=== PATIENT | male | born 1935 | race Caucasian/White ===

== ENCOUNTER 2021-04-20 16:27 | Emergency (ER) | payer MEDICARE, SELFPAY ==
[2021-04-20 16:32] VITALS: BP 149/78; PULSE 82; RESP 16; TEMP 36.9; O2SAT 96
--- NOTE | 2021-04-20 16:45 | CTR_ITS ---
PROCEDURE INFORMATION: Exam: CT Right Lower Extremity Without Contrast, Foot Exam date and time: 04/20/2021 5:18 PM Age: 85 years old Clinical indication: Swelling, leg or foot; Patient HX: R foot pain and swelling w/o specific injury; Additional info: Cellulitis TECHNIQUE: Imaging protocol: CT of the Right lower extremity without contrast was performed. Exam focused on the foot. Radiation optimization: All CT scans at this facility use at least one of these dose optimization techniques: automated exposure control; mA and/or kV adjustment per patient size (includes targeted exams where dose is matched to clinical indication); or iterative reconstruction. COMPARISON: No relevant prior studies available. RADIATION DOSE METRICS: Total DLP (mGy-cm): 295.8 FINDINGS: Bones/joints: Advanced, severe Charcot arthropathy changes are noted throughout the midfoot. Collapse of the midfoot arch with pes planus deformity. Negative for acute fracture. Extensive joint space narrowing between the tarsal bones with osteophytic spurring and subcortical cystic changes diffusely. No aggressive, lytic bone lesion is identified. Soft tissues: Diffuse soft tissue edema changes predominantly seen over the dorsum of the midfoot. No focal drainable soft tissue fluid collection. The Achilles tendon attachment upon the calcaneus is intact. Plantar fascia aponeurosis attachment intact. CT/CT foot RT wo con* [id number] IMPRESSION: 1. Right foot cellulitis changes. 2. No convincing CT scan evidence of osteomyelitis. 3. Advanced Charcot arthropathy degenerative joint changes throughout the midfoot. Radiation Dose CTDIVOL = (mGy): DLP = 295.8 (mGy-cm)
--- NOTE | 2021-04-20 16:47 | W.ED.EXTPRO ---
Documented by User: Alexey To MD 04/20/21 17:47 HPI - Extremity Problem General: Chief complaint: Extremity Problem,Nontraumatic Stated complaint: Infection in right foot Time Seen by Provider: 04/20/21 16:41 History of Present Illness: HPI Narrative: This patient is a 85-year-old male who presents to the emergency department with family with complaint of cellulitis of the right foot. Patient [place] south of [facility] and was recently in the hospital at that time for urinary tract infection to cause delirium. Patient was treated with antibiotics and discharged home on a third-generation cephalosporin medication. Patient was brought to the [place] area with family to help care for him.'s grandson who is a medical student presented and states that he was just given his grandpa good look over noticed that one of his feet was swollen and red. On exam there is an ulcerative lesion on the sole of his right foot. Patient has not had any fevers. Patient denies a history of diabetes states his last hemoglobin A1c was 6.2. Patient is currently on antibiotics. Will do medical evaluation treat as needed. Complaint: extremity pain and extremity swelling Pain Consistency: constant Location: right Associated symptoms: Deny chest pain, fever(s) or rash Review of Systems General: Reports: 10 or more systems reviewed and unremarkable except in HPI and below Const: Denies: fever(s), chills, body aches or fatigue Eyes: Denies: change in vision or blurry vision ENMT: Denies: throat pain, hoarseness or mouth pain Card: Denies: chest pain, palpitations, irregular heart rhythm, edema, swelling of feet/ankles or lightheadedness Resp: Denies: dyspnea, productive cough, non-productive cough, wheezing or pain on inspiration GI: Denies: abdominal pain, nausea or vomiting : Denies: flank pain, dysuria, urinary frequency, urinary urgency or urinary hesitancy Musc: Denies: neck pain, back pain, extremity pain, extremity swelling, joint pain, joint swelling, joint redness, joint warmth or limited range of motion Skin/Breast: Denies: rash, pruritus, erythema or skin tenderness Neuro: Denies: headache(s), numbness in extremities or weakness in extremities Psych: Denies: anxiety or depression Physical Exam Const: COMMON NORMALS: no acute distress, average body habitus, patient oriented x3, no limitations, healthy appearing, alert and well nourished HENMT: COMMON NORMALS: normocephalic, atraumatic, external ears normal, EAC's normal, TM's normal bilaterally, Normal external nose present and Normal nasal mucous membranes and turbinates present HEAD & SCALP: normocephalic and atraumatic NOSE: Normal external nose present and Normal nasal mucous membranes and turbinates present EXTERNAL EAR: Yes external ears normal EXTERNAL AUDITORY CANAL: EAC's normal TYMPANIC MEMBRANE: TM's normal bilaterally Neck/C-Spine: COMMON NORMALS: full ROM, no lymphadenopathy, supple, no meningeal signs, no JVD, Thyroid normal and No carotid bruits THYROID: Thyroid normal Chest: COMMONS NORMALS: normal inspection of the chest, normal palpation of entire chest wall, normal inspection of the breasts and normal palpation of the breasts Breast/axilla inspection: Yes normal inspection of the breasts BREAST/AXILLA PALPATION: Yes normal palpation of the breasts Resp: COMMON NORMALS: normal respiratory effort, No retractions, No use of accessory muscles, clear to auscultation bilaterally and percussion normal AUSCULTATION: clear to auscultation bilaterally PERCUSSION: percussion normal Cardio: COMMON NORMALS: no JVD, regular rate, regular rhythm, S1 normal heart sound present, S2 normal heart sound present, No gallops present (Cardio), No clicks present (Cardio), No murmurs present (Cardio), No rub (Cardio) and Peripheral pulses 2+ throughout RATE: regular rate RHYTHM: regular rhythm HEART SOUNDS: S1 normal heart sound present and S2 normal heart sound present PERIPHERAL PULSES: Peripheral pulses 2+ throughout GI: COMMON NORMALS: Normal to inspection, nondistended, normoactive bowel sounds present, Soft to palpation, non-tender, No hepatosplenomegaly present, no masses and no bruits PALPATION: Yes Soft to palpation and Yes No hepatosplenomegaly present : COMMON NORMALS: Yes no CVA tenderness BLADDER/KIDNEY EXAM: Yes no CVA tenderness Back/Pelvis: COMMON NORMALS: no CVA tenderness, thoracic and lumbar spine normal to inspection, no thoracic nor lumbar tenderness, thoraco-lumbar ROM normal and straight leg raise negative bilaterally Extremity: COMMON NORMALS: full ROM, capillary refill normal, no joint enlargement, no clubbing, cyanosis or edema, no calf tenderness and no pedal edema RIGHT LOWER EXTREMITY: Yes foot & digits (Patient has a swollen right foot and has a ulcerative lesion on the end sunny) Neuro: COMMON NORMALS: patient oriented x3 SENSORIUM/ORIENTATION: Yes alert MENINGEAL SIGNS: Yes no meningeal signs Course Vital Signs: Vital signs: Vital Signs Temperature 98.5 F 04/20/21 16:32 Pulse Rate 65 04/20/21 17:08 Respiratory Rate 15 04/20/21 17:27 Blood Pressure 133/82 04/20/21 17:08 Pulse Oximetry 97 04/20/21 17:08 MDM - Extremity (Nontraumatic) MDM Narrative: Medical decision making narrative: This patient is a 85-year-old male who presents to the emergency department with family with complaint of cellulitis of the right foot. Patient [place] just [place] of [facility] and was recently in the hospital at that time for urinary tract infection to cause delirium. Patient was treated with antibiotics and discharged home on a third-generation cephalosporin medication. Patient was brought to the [place] area with family to help care for him.'s grandson who is a medical student presented and states that he was just given his grandpa good look over noticed that one of his feet was swollen and red. On exam there is an ulcerative lesion on the sole of his right foot. Patient has not had any fevers. Patient denies a history of diabetes states his last hemoglobin A1c was 6.2. Patient is currently on antibiotics. Medical Records: Attestation: I reviewed the patient's medical records. Lab Data: Attestation: I reviewed the patient's lab results. Labs: Lab Results 04/20/21 04/20/21 04/20/21 Range/Units 17:00 17:00 17:00 WBC 8.3 (4.0-10.0) 10^3/ uL RBC 3.87 L (4.1-5.3) 10^6/u L Hgb 12.7 (11.7-16.6) g/dL Hct 39.6 L (42.0-52.0) % MCV 102.3 H (80-94) fL MCH 32.8 (28.0-34.0) pg MCHC 32.1 (30.0-36.0) g/dL RDW 12.6 (12.1-15.1) % Plt Count 287 (130-400) 10^3/c mm MPV 9.2 (7.4-10.4) fL Neut % (Auto) 62.1 % Lymph % (Auto) 22.3 % [place] % (Auto) 12.5 % Eos % (Auto) 1.8 % Baso % (Auto) 0.5 % Neut # (Auto) 5.16 (1.8-7.7) 10^3/u L Lymph # (Auto) 1.9 (0.8-4.8) 10^3/u L [place] # (Auto) 1.0 H (0.2-0.9) 10^3/u L Eos # (Auto) 0.2 (0.0-0.8) 10^3/u L Baso # (Auto) 0.0 (0.0-0.1) 10^3/u L Nucleated RBC % (a uto) 0 % Nucleated RBCs # 0.0 /100WBC ESR 43 H (0-10) mm/hr Sodium 136 (136-145) mmol/L Potassium 4.7 (3.5-5.1) mmol/L Chloride 101 (98-107) mmol/L Carbon Dioxide 26 (22-29) mmol/L Anion Gap 13.7 (5-19) BUN 27 H (8-23) mg/dL Creatinine 1.2 (0.7-1.2) mg/dL GFR Calculation Not Reportable Glucose 125 H (65-115) mg/dL Calculated Osmolal ity 289 (285-295) mOsm/k g Calcium 9.8 (8.5-10.5) mg/dL Total Bilirubin 0.3 (0.15-1.2) mg/dL AST 16 (0-40) U/L ALT 11 (0-41) U/L Alkaline Phosphata se 106 (40-130) IU/L C-Reactive Protein 71.5 H (0.0-4.9) mg/L Total Protein 6.7 (6.6-8.7) g/dL Albumin 3.8 (3.5-5.2) g/dL Globulin 2.9 (1.3-4.6) g/dL Discharge Plan Discharge Patient Disposition: Home Clinical Impression: Cellulitis Qualifiers: Site of cellulitis: extremity Site of cellulitis of extremity: lower extremity Laterality: right Qualified Code(s): L03.115 - Cellulitis of right lower limb Condition: Stable Prescriptions: New Bactrim DS 800-160 mg tablet 1 tab PO BID 10 Days Qty: 20 RF: 0 No Action oxazepam 10 mg capsule 10 mg PO DAILY RF: 0 cefpodoxime 200 mg tablet 200 mg PO BID RF: 0 oxybutynin chloride 10 mg tablet extended release 24hr 10 mg PO DAILY RF: 0 simvastatin 20 mg tablet 20 mg PO DAILY RF: 0 lisinopril 10 mg tablet 10 mg PO DAILY RF: 0 metoprolol tartrate 50 mg tablet 50 mg PO DAILY RF: 0 PreviDent 5000 Dry Mouth 1.1 % gel See Rx Instructions .ROUTE .COMPLEX RF: 0 finasteride 5 mg tablet 5 mg PO DAILY RF: 0 diclofenac sodium 1 % gel See Rx Instructions .ROUTE .COMPLEX RF: 0 Discharge Orders: Discharge ED (Routine); Ordered 04/20/21 Ordered By: Som Odonnell Referrals: Rolan Mendieta DPM [Physician] - 1-3 days Discharge Diet: Advance as tolerated Discharge Activity: Resume usual activity Patient Instructions: Cellulitis (ED) Coding Level of Care Code ED Label Printing Machinist for Chg Fwd Exam Comprehensive Documented by User: Som Odonnell MD 04/20/21 18:19 HPI - Extremity Problem General: Chief complaint: Extremity Problem,Nontraumatic Stated complaint: Infection in right foot Time Seen by Provider: 04/20/21 16:41 Course Vital Signs: Vital signs: Vital Signs Temperature 98.5 F 04/20/21 16:32 Pulse Rate 65 04/20/21 17:08 Respiratory Rate 15 04/20/21 17:27 Blood Pressure 133/82 04/20/21 17:08 Pulse Oximetry 97 04/20/21 17:08 MDM - Extremity (Nontraumatic) MDM Narrative: Medical decision making narrative: Patient presents here with cellulitis to his foot. X-ray showed no signs of osteomyelitis. I spoke to Dr. Mendieta and will have patient follow-up with him on Thursday or Thursday. We will start him on Bactrim. He is return if worsening. He understands and agrees to plan. Lab Data: Labs: Lab Results 04/20/21 04/20/21 04/20/21 Range/Units 17:00 17:00 17:00 WBC 8.3 (4.0-10.0) 10^3/ uL RBC 3.87 L (4.1-5.3) 10^6/u L Hgb 12.7 (11.7-16.6) g/dL Hct 39.6 L (42.0-52.0) % MCV 102.3 H (80-94) fL MCH 32.8 (28.0-34.0) pg MCHC 32.1 (30.0-36.0) g/dL RDW 12.6 (12.1-15.1) % Plt Count 287 (130-400) 10^3/c mm MPV 9.2 (7.4-10.4) fL Neut % (Auto) 62.1 % Lymph % (Auto) 22.3 % [place] % (Auto) 12.5 % Eos % (Auto) 1.8 % Baso % (Auto) 0.5 % Neut # (Auto) 5.16 (1.8-7.7) 10^3/u L Lymph # (Auto) 1.9 (0.8-4.8) 10^3/u L [place] # (Auto) 1.0 H (0.2-0.9) 10^3/u L Eos # (Auto) 0.2 (0.0-0.8) 10^3/u L Baso # (Auto) 0.0 (0.0-0.1) 10^3/u L Nucleated RBC % (a uto) 0 % Nucleated RBCs # 0.0 /100WBC ESR 43 H (0-10) mm/hr Sodium 136 (136-145) mmol/L Potassium 4.7 (3.5-5.1) mmol/L Chloride 101 (98-107) mmol/L Carbon Dioxide 26 (22-29) mmol/L Anion Gap 13.7 (5-19) BUN 27 H (8-23) mg/dL Creatinine 1.2 (0.7-1.2) mg/dL GFR Calculation Not Reportable Glucose 125 H (65-115) mg/dL Calculated Osmolal ity 289 (285-295) mOsm/k g Calcium 9.8 (8.5-10.5) mg/dL Total Bilirubin 0.3 (0.15-1.2) mg/dL AST 16 (0-40) U/L ALT 11 (0-41) U/L Alkaline Phosphata se 106 (40-130) IU/L C-Reactive Protein 71.5 H (0.0-4.9) mg/L Total Protein 6.7 (6.6-8.7) g/dL Albumin 3.8 (3.5-5.2) g/dL Globulin 2.9 (1.3-4.6) g/dL Imaging Data^: Other CT: Attestation: I personally reviewed and interpreted this imaging study as follows: Radiologist's impression: [address] [address] [address] Scan Report Signed Patient: Aldo Esparza Unit #: [id number] : 1935 Age/Sex: 85 / M ADM Date: 04/20/21 Loc: ER Room/Bed: Attending Dr: Ordering Provider/Ordering MD: Alexey To MD Date of Service: 04/20/21 Procedure(s): CT foot RT wo con* [id number] Accession Number(s): [id number] Report Number: [id number] PROCEDURE INFORMATION: Exam: CT Right Lower Extremity Without Contrast, Foot Exam date and time: 04/20/2021 5:18 PM Age: 85 years old Clinical indication: Swelling, leg or foot; Patient HX: R foot pain and swelling w/o specific injury; Additional info: Cellulitis TECHNIQUE: Imaging protocol: CT of the Right lower extremity without contrast was performed. Exam focused on the foot. Radiation optimization: All CT scans at this facility use at least one of these dose optimization techniques: automated exposure control; mA and/or kV adjustment per patient size (includes targeted exams where dose is matched to clinical indication); or iterative reconstruction. COMPARISON: No relevant prior studies available. RADIATION DOSE METRICS: Total DLP (mGy-cm): 295.8 FINDINGS: Bones/joints: Advanced, severe Charcot arthropathy changes are noted throughout the midfoot. Collapse of the midfoot arch with pes planus deformity. Negative for acute fracture. Extensive joint space narrowing between the tarsal bones with osteophytic spurring and subcortical cystic changes diffusely. No aggressive, lytic bone lesion is identified. Soft tissues: Diffuse soft tissue edema changes predominantly seen over the dorsum of the midfoot. No focal drainable soft tissue fluid collection. The Achilles tendon attachment upon the calcaneus is intact. Plantar fascia aponeurosis attachment intact. CT/CT foot RT wo con* [id number] IMPRESSION: 1. Right foot cellulitis changes. 2. No convincing CT scan evidence of osteomyelitis. 3. Advanced Charcot arthropathy degenerative joint changes throughout the midfoot. Radiation Dose CTDIVOL = (mGy): DLP = 295.8 (mGy-cm) Dictated By: Antonino Mcdonald Signed By: Antonino Mcdonald Signed Date/Time: 04/20/211743 DD/ 42 Discharge Plan Discharge Patient Disposition: Home Clinical Impression: Cellulitis Qualifiers: Site of cellulitis: extremity Site of cellulitis of extremity: lower extremity Laterality: right Qualified Code(s): L03.115 - Cellulitis of right lower limb Condition: Stable Prescriptions: New Bactrim DS 800-160 mg tablet 1 tab PO BID 10 Days Qty: 20 RF: 0 No Action oxazepam 10 mg capsule 10 mg PO DAILY RF: 0 cefpodoxime 200 mg tablet 200 mg PO BID RF: 0 oxybutynin chloride 10 mg tablet extended release 24hr 10 mg PO DAILY RF: 0 simvastatin 20 mg tablet 20 mg PO DAILY RF: 0 lisinopril 10 mg tablet 10 mg PO DAILY RF: 0 metoprolol tartrate 50 mg tablet 50 mg PO DAILY RF: 0 PreviDent 5000 Dry Mouth 1.1 % gel See Rx Instructions .ROUTE .COMPLEX RF: 0 finasteride 5 mg tablet 5 mg PO DAILY RF: 0 diclofenac sodium 1 % gel See Rx Instructions .ROUTE .COMPLEX RF: 0 Discharge Orders: Discharge ED (Routine); Ordered 04/20/21 Ordered By: Som Odonnell Referrals: Rolan Mendieta DPM [Physician] - 1-3 days Discharge Diet: Advance as tolerated Discharge Activity: Resume usual activity Patient Instructions: Cellulitis (ED) Coding Level of Care Code ED Label Printing Machinist for Herb Fwmarlon Exam Comprehensive
[2021-04-20 17:08] VITALS: BP 133/82; PULSE 65; PULSE 78; RESP 18; O2SAT 97
[2021-04-20 17:13] LABS: Basophils % 0.5 %; Eosinophils # 0.2 10^3/uL (0.0-0.8); Eosinophils % 1.8 %; Hematocrit 39.6 % (42.0-52.0); Hemoglobin 12.7 g/dL (11.7-16.6); Lymphocytes # 1.9 10^3/uL (0.8-4.8); Lymphocytes % 22.3 %; Mean Corpuscular HGB Conc 32.1 g/dL (30.0-36.0); Mean Corpuscular Hemoglobin 32.8 pg (28.0-34.0); Mean Corpuscular Volume 102.3 fL (80-94); Mean Platelet Volume 9.2 fL (7.4-10.4); Monocytes % 12.5 %; Neutrophils # 5.16 10^3/uL (1.8-7.7); Neutrophils % 62.1 %; Nucleated Red Blood Cells % 0 %; Platelet Count 287 10^3/cmm (130-400); Red Blood Count 3.87 10^6/uL (4.1-5.3); Red Cell Distribution Width 12.6 % (12.1-15.1); White Blood Count 8.3 10^3/uL (4.0-10.0)
[2021-04-20 17:27] VITALS: RESP 15
[2021-04-20] MEDS: vancomycin 1,000 MG in sodium chloride 0.9% 250 ML 250 MG IV (17:32)
[2021-04-20 17:34] LABS: Alanine Aminotransferase 11 U/L (0-41); Albumin Level 3.8 g/dL (3.5-5.2); Alkaline Phosphatase 106 IU/L (40-130); Anion Gap 13.7 (5-19); Aspartate Amino Transferase 16 U/L (0-40); Blood Urea Nitrogen 27 mg/dL (8-23); C Reactive Protein 71.5 mg/L (0.0-4.9); Calcium 9.8 mg/dL (8.5-10.5); Carbon Dioxide 26 mmol/L (22-29); Chloride 101 mmol/L (98-107); Globulin 2.9 g/dL (1.3-4.6); Glucose 125 mg/dL (65-115); Osmolality Calculated 289 mOsm/kg (285-295); Potassium 4.7 mmol/L (3.5-5.1); Sodium 136 mmol/L (136-145); Total Bilirubin 0.3 mg/dL (0.15-1.2); Total Protein 6.7 g/dL (6.6-8.7)
[2021-04-20 17:58] LABS: Erythrocyte Sedimentation Rate 43 mm/hr (0-10)
[2021-04-20 18:27] VITALS: BP 149/70; PULSE 77; RESP 18; O2SAT 97
[2021-04-20] MEDS: sulfamethoxazole-trimeth DS 160-800 mg Tablet 1 TAB PO (18:33)
[2021-04-20 18:43] VITALS: BP 149/70; PULSE 77; RESP 18; O2SAT 97
[2021-04-20 19:15] VITALS: BP 177/96; PULSE 66; RESP 18; O2SAT 100
--- NOTE | 2021-04-22 09:04 | DCPLANNER ---
discovery manager had message to schedule a follow up appointment for patient with ortho for foot cellulitis. discovery manager called the ortho clinic, spoke with Ceci, gave clinic patients information. discovery manager was told that patients information would be printed and reviewed. Clinic will call patient with appointment information.
--- NOTE | 2021-04-25 08:10 | DCPLANNER ---
Patient had a follow up appointment scheduled for 04.22.[address] Mendieta - patient did attend appointment.
== END 2021-04-20 19:21 | disposition home or self-care (01) ==
PROVIDERS: Emergency Medicine; Emergency Provider Emergency Medicine
DX: L03.115 Cellulitis of right lower limb (principal)
CPT/HCPCS: 36415; 73700; 80053; 85025; 85651; 86140; 87040; 96365; 99283; J3370; J7050

== ENCOUNTER → 2021-04-22 12:03 | Outpatient (BNVA) | payer MEDICARE, SELFPAY | PROVIDERS: Referring Provider Emergency Medicine; Visit Provider Podiatrist Foot & Ankle Surgery | DX: S82.831A Other fracture of upper and lower end of right fibula, initial encounter for closed fracture (principal); L97.512 Non-pressure chronic ulcer of other part of right foot with fat layer exposed; M14.679 Charcot's joint, unspecified ankle and foot; X58.XXXA Exposure to other specified factors, initial encounter | CPT/HCPCS: 73610; 73630 ==

== ENCOUNTER → 2021-05-02 10:56 | Outpatient (BNVA) | payer MEDICARE, SELFPAY | PROVIDERS: Visit Provider Podiatrist Foot & Ankle Surgery | DX: S82.831A Other fracture of upper and lower end of right fibula, initial encounter for closed fracture (principal); X58.XXXA Exposure to other specified factors, initial encounter | CPT/HCPCS: 73610 ==

== ENCOUNTER → 2021-05-17 13:11 | Outpatient (BNVA) | payer MEDICARE, SELFPAY | PROVIDERS: Visit Provider Podiatrist Foot & Ankle Surgery | DX: S82.831A Other fracture of upper and lower end of right fibula, initial encounter for closed fracture (principal); L97.512 Non-pressure chronic ulcer of other part of right foot with fat layer exposed; M14.679 Charcot's joint, unspecified ankle and foot; X58.XXXA Exposure to other specified factors, initial encounter | CPT/HCPCS: 73610 ==

== ENCOUNTER → 2021-06-04 13:30 | Outpatient (BNVA) | payer MEDICARE, SELFPAY | PROVIDERS: Visit Provider Podiatrist Foot & Ankle Surgery | DX: S82.831A Other fracture of upper and lower end of right fibula, initial encounter for closed fracture (principal); L97.512 Non-pressure chronic ulcer of other part of right foot with fat layer exposed; M14.671 Charcot's joint, right ankle and foot; X58.XXXA Exposure to other specified factors, initial encounter; M79.671 Pain in right foot | CPT/HCPCS: 73610 ==

== ENCOUNTER → 2021-06-24 14:10 | Outpatient (BNVA) | payer MEDICARE, SELFPAY | PROVIDERS: PCP Family Medicine; Visit Provider Podiatrist Foot & Ankle Surgery | DX: S82.891D Other fracture of right lower leg, subsequent encounter for closed fracture with routine healing (principal); L97.512 Non-pressure chronic ulcer of other part of right foot with fat layer exposed; M14.679 Charcot's joint, unspecified ankle and foot; S82.831D Other fracture of upper and lower end of right fibula, subsequent encounter for closed fracture with routine healing; X58.XXXD Exposure to other specified factors, subsequent encounter | CPT/HCPCS: 73610 ==

== ENCOUNTER 2021-06-24 15:51 | Outpatient (CLI) | payer MEDICARE, SELFPAY ==
--- NOTE | 2021-06-24 | USCV_ITS ---
Aldo Esparza Age: 85 Gender: M : 1935 Exam Date: 06/24/2021 16:15 Ordering Phys: Terrell Meade DO Technologist: [place] [facility] [place]: [place] BP: 123 / 73 HR: 64 Rhythm: Sinus Technical Quality: Technically difficult study MEASUREMENTS (Male / Female) Normal Values 2D ECHO LV Diastolic Diameter PLAX 3.7 cm 4.2 - 5.9 / 3.9 - 5.3 cm LV Systolic Diameter PLAX 2.5 cm IVS Diastolic Thickness 1.2 cm 0.6 - 1.0 / 0.6 - 0.9 cm IVS Systolic Thickness 1.1 cm LVPW Diastolic Thickness 1.2 cm 0.6 - 1.0 / 0.6 - 0.9 cm LVPW Systolic Thickness 1.0 cm LVOT Diameter 2.1 cm LV Ejection Fraction 2D Teich 48.5 % LV Ejection Fraction MOD 2C 69.1 % LV Ejection Fraction 2C AL 69.6 % LA Diameter 4.2 cm LA Width 3.3 cm LA Height 4.3 cm RA Width 3.0 cm RA Height 4.5 cm DOPPLER AV Peak Velocity 197.7 cm/s LVOT Peak Velocity 95.0 cm/s AV Area Cont Eq vti 2.1 cm squared AV Area Cont Eq pk 1.6 cm squared MV Area PHT 5.0 cm squared Mitral E to A Ratio 0.7 MV E' Velocity 31.5 cm/s Mitral E to MV E' Ratio 8.7 Mitral E to LV E' Lateral Ratio 8.4 Mitral E to LV E' Septal Ratio 8.9 PV Peak Velocity 80.0 cm/s FINDINGS Left Ventricle Normal left ventricular size. Grossly LV systolic function is normal. Grade 1 diastolic dysfunction Right Ventricle The right ventricle is normal in size and function. Right Atrium The right atrium is grossly normal in size. Left Atrium The left atrium is grossly normal in size. Mitral Valve Grossly normal. No significant stenosis or prolapse. There is trace mitral regurgitation. Aortic Valve Not well visualized. By doppler evaluation, patient has mild aortic stenosis with UNIQUE of 1.74cm2 and mean gradient of 10.3mmHg. No aortic regurgitation. Tricuspid Valve Not well visualized Pulmonic Valve Not well visualized Pericardium Normal pericardium without effusion. Aorta Not well visualized CONCLUSIONS Limited quality echocardiogram because of poor ultrasonic windows. Limited visualization of cardiac structures. Grossly LV systolic function is normal. Grade 1 diastolic dysfunction. Trace mitral regurgitation. Aortic valve is not well visualized however by Doppler evaluation patient has mild aortic stenosis with aortic valve area of 1.74 cm squared and mean gradient of 10.3 mmHg. No comparison studies are available Dada Teixeira MD (Electronically Signed) Final Date: 27 June 2021 11:19 S
== END 2021-06-24 15:52 | disposition home or self-care (01) ==
LOC: RAD 16:00
PROVIDERS: PCP Family Medicine; Visit Provider Family Medicine
DX: I25.10 Atherosclerotic heart disease of native coronary artery without angina pectoris (principal); R01.1 Cardiac murmur, unspecified; I34.0 Nonrheumatic mitral (valve) insufficiency
CPT/HCPCS: 93306

== ENCOUNTER 2021-06-28 22:51 | Emergency (ER) | payer OTHER, MEDICARE, SELFPAY ==
[2021-06-28 23:15] VITALS: BP 128/61; PULSE 61; TEMP 36.7; O2SAT 90; BMI 33.0
[2021-06-28 23:26] VITALS: PULSE 62; RESP 17; O2SAT 94
--- NOTE | 2021-06-28 23:41 | CTR_ITS ---
PROCEDURE INFORMATION: Exam: CT Head Without Contrast Exam date and time: 06/28/2021 11:41 PM Age: 85 years old Clinical indication: Syncope and collapse; Patient HX: Syncope. Lethargy. ; Additional info: AMS TECHNIQUE: Imaging protocol: Computed tomography of the head without contrast. Radiation optimization: All CT scans at this facility use at least one of these dose optimization techniques: automated exposure control; mA and/or kV adjustment per patient size (includes targeted exams where dose is matched to clinical indication); or iterative reconstruction. COMPARISON: No relevant prior studies available. RADIATION DOSE METRICS: Total DLP (mGy-cm): 1017.03 FINDINGS: Brain: No acute intracranial hemorrhage or mass effect. There is mild decreased attenuation in the periventricular white matter, likely from microvascular disease. No definite acute infarct by CT. MRI could be more sensitive/specific for detection, as clinically directed. Cerebral ventricles: Ventricle size is normal for age. Paranasal sinuses: Included paranasal sinuses are essentially clear. Mastoid air cells: No significant acute finding. Vasculature: Vascular calcifications in the internal carotid and vertebral basilar systems. Bones/joints: No definite acute skull fracture. CT/CT head wo con* [id number] IMPRESSION: 1. No acute intracranial hemorrhage or mass effect. 2. Changes of microvascular disease. 3. No definite acute infarct by CT, see above. 4. Other findings discussed above. Radiation Dose CTDIVOL = (mGy): DLP = 1017.03 (mGy-cm)
--- NOTE | 2021-06-28 23:50 | ED_ITS ---
HPI - Altered Mental Status General: Chief Complaint: Altered Mental Status Stated Complaint: syncople episode / poss tia Time Seen by Provider: 06/28/21 23:05 History of Present Illness: HPI narrative: 85-year-old gentleman who has had a stressful day his daughter states. Today his went to the correction. He had been out with his daughter most of the day. He was given a sleeping pill by the assisted living facility staff around 845, sometime around 930, he was noted to be slumped over, leaning to the left, and had significantly decreased mental status. He was generally weak in the bilateral lower extremities, and could not stand at that point. He was also urinating excessively. On EMS arrival, he answered most questions appropriately, although note was noted to be very sleepy MD complaint: altered mental status and decreased responsiveness Onset (ago): hour(s) Timing confirmed by: family member Severity: moderate Context: other Associated symptoms: Deny auditory hallucinations, visual hallucinations or delusions Review of Systems Const: Denies: fever(s) or chills Eyes: Denies: change in vision Card: Denies: chest pain or palpitations Resp: Denies: dyspnea, productive cough or non-productive cough GI: Denies: abdominal pain, nausea or vomiting : Reports: urinary frequency and urinary incontinence Neuro: Reports: weakness in extremities (Bilateral lower) and confusion; Denies: headache(s) Psych: Denies: visual hallucinations or auditory hallucinations [facility] ED PFSH: Social History Smoking and tobacco status: never smoked Physical Exam Const: COMMON NORMALS: no acute distress GENERAL APPEARANCE: cooperative, lethargic and frail appearing ORIENTATION/CONSCIOUSNESS: Yes lethargic Eye: COMMON NORMALS: Equal, round and reactive pupils present PUPIL: Yes Equal, round and reactive pupils present Chest: COMMONS NORMALS: normal inspection of the chest Resp: COMMON NORMALS: normal respiratory effort and No use of accessory muscles AUSCULTATION: rhonchi left lower Cardio: COMMON NORMALS: regular rate and regular rhythm RATE: regular rate RHYTHM: regular rhythm GI: COMMON NORMALS: Normal to inspection, nondistended, normoactive bowel sounds present, Soft to palpation and non-tender PALPATION: Yes Soft to palpation Neuro: SENSORIUM/ORIENTATION: Yes lethargic CRANIAL NERVES: Yes CN normal except as noted COORDINATION/BALANCE: [id number] test normal SPEECH: speech normal GAIT: Yes Unable to assess gait MOTOR EXAM: Pronator motor function not present and Other motor observations present (Weakness bilateral lower extremity) COORDINATION: [id number] test normal Psych: THOUGHT CONTENT: No delusions Course Vital Signs: Vital signs: Vital Signs Temperature 98.1 F 06/28/21 23:15 Pulse Rate 70 06/29/21 06:51 Respiratory Rate 16 06/29/21 06:51 Blood Pressure 175/75 06/29/21 06:51 Pulse Oximetry 96 06/29/21 06:51 MDM - Altered Mental Status MDM Narrative: Medical decision making narrative: 85-year-old gentleman with generalized weakness, lethargy. His vitals have been good. Blood gas shows minimal hypoxia. His white blood cell count is 7.3. Is afebrile. Other laboratory is benign. He does have a urinary tract infection, for which she was given Rocephin here. Head CT is negative. The patient was able to stand and transfer with some assistance in the ER. He will be discharged on cefdinir for the UTI. They know to bring him back if he worsens. His mental status did improve while here. Exam was nonfocal. Lab Data: Labs: Lab Results 06/28/21 06/29/21 06/29/21 Range/Units 00:12 01:10 01:10 WBC 7.3 (4.0-10.0) 10^3/ uL RBC 3.70 L (4.1-5.3) 10^6/u L Hgb 12.1 (11.7-16.6) g/dL Hct 37.4 L (42.0-52.0) % MCV 101.1 H (80-94) fL MCH 32.7 (28.0-34.0) pg MCHC 32.4 (30.0-36.0) g/dL RDW 12.9 (12.1-15.1) % Plt Count 327 (130-400) 10^3/c mm MPV 9.8 (7.4-10.4) fL Neut % (Auto) 57.8 % Lymph % (Auto) 23.5 % [place] % (Auto) 14.3 % Eos % (Auto) 3.2 % Baso % (Auto) 0.4 % Neut # (Auto) 4.21 (1.8-7.7) 10^3/u L Lymph # (Auto) 1.7 (0.8-4.8) 10^3/u L [place] # (Auto) 1.0 H (0.2-0.9) 10^3/u L Eos # (Auto) 0.2 (0.0-0.8) 10^3/u L Baso # (Auto) 0.0 (0.0-0.1) 10^3/u L Nucleated RBC % (a uto) 0 % Nucleated RBCs # 0.0 /100WBC Specimen Type Arterial Sample Site Radial, left ABG pH 7.40 (7.35-7.45) ABG pCO2 42.1 (35-45) mmHg ABG pO2 58.7 L (80.0-100.0) mmH g ABG HCO3 26.1 H (22-26) mmol/L ABG Base Excess 1.1 (-2.0-2.0) mmol/ L Alexi Test Pos Hematocrit 36.7 L (42-52) % O2 Delivery Device Room air FiO2 21.0 % Service Counselor ID [place] Blood Gas Notified Time 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 Sodium 133 L (136-145) mmol/L Potassium 4.5 (3.5-5.1) mmol/L Chloride 100 (98-107) mmol/L Carbon Dioxide 22 (22-29) mmol/L Anion Gap 15.5 (5-19) BUN 26 H (8-23) mg/dL Creatinine 1.0 (0.7-1.2) mg/dL GFR Calculation Not Reportable Glucose 93 (65-115) mg/dL Calculated Osmolal ity 280 L (285-295) mOsm/k g Lactate (0.5-2.2) mmol/L Calcium 9.9 (8.5-10.5) mg/dL Magnesium 2.1 (1.7-2.3) mg/dL Total Bilirubin 0.3 (0.15-1.2) mg/dL AST 20 (0-40) U/L ALT 15 (0-41) U/L Alkaline Phosphata se 123 (40-130) IU/L Ammonia (16-60) umol/L Troponin T Baselin e (0-15) ng/L Total Protein 5.9 L (6.6-8.7) g/dL Albumin 3.5 (3.5-5.2) g/dL Globulin 2.4 (1.3-4.6) g/dL Urine Color (Yellow) Urine Appearance (CLEAR) Urine pH (5-7) Ur Specific Gravit y (1.005-1.030) Urine Protein (Negative) Urine Glucose (UA) (Normal) Urine Ketones (Negative) Urine Blood (Negative) Urine Nitrate (Negative) Urine Bilirubin (Negative) Urine Urobilinogen (Negative) mg/dL Ur Leukocyte Kerry ase (Negative) Urine RBC (0-2) /hpf Urine WBC (0-5) /hpf Ur Squamous Epith Cells (0-5) /hpf Amorphous Sediment Urine Bacteria (NONE) /hpf 06/29/21 06/29/21 06/29/21 Range/Units 01:10 01:10 01:10 WBC (4.0-10.0) 10^3/ uL RBC (4.1-5.3) 10^6/u L Hgb (11.7-16.6) g/dL Hct (42.0-52.0) % MCV (80-94) fL MCH (28.0-34.0) pg MCHC (30.0-36.0) g/dL RDW (12.1-15.1) % Plt Count (130-400) 10^3/c mm MPV (7.4-10.4) fL Neut % (Auto) % Lymph % (Auto) % [place] % (Auto) % Eos % (Auto) % Baso % (Auto) % Neut # (Auto) (1.8-7.7) 10^3/u L Lymph # (Auto) (0.8-4.8) 10^3/u L [place] # (Auto) (0.2-0.9) 10^3/u L Eos # (Auto) (0.0-0.8) 10^3/u L Baso # (Auto) (0.0-0.1) 10^3/u L Nucleated RBC % (a uto) % Nucleated RBCs # /100WBC Specimen Type Sample Site ABG pH (7.35-7.45) ABG pCO2 (35-45) mmHg ABG pO2 (80.0-100.0) mmH g ABG HCO3 (22-26) mmol/L ABG Base Excess (-2.0-2.0) mmol/ L Alexi Test Hematocrit (42-52) % O2 Delivery Device FiO2 % Service Counselor ID Blood Gas Notified Time Sodium (136-145) mmol/L Potassium (3.5-5.1) mmol/L Chloride (98-107) mmol/L Carbon Dioxide (22-29) mmol/L Anion Gap (5-19) BUN (8-23) mg/dL Creatinine (0.7-1.2) mg/dL GFR Calculation Glucose (65-115) mg/dL Calculated Osmolal ity (285-295) mOsm/k g Lactate 0.8 (0.5-2.2) mmol/L Calcium (8.5-10.5) mg/dL Magnesium (1.7-2.3) mg/dL Total Bilirubin (0.15-1.2) mg/dL AST (0-40) U/L ALT (0-41) U/L Alkaline Phosphata se (40-130) IU/L Ammonia 33 (16-60) umol/L Troponin T Baselin e 35 H (0-15) ng/L Total Protein (6.6-8.7) g/dL Albumin (3.5-5.2) g/dL Globulin (1.3-4.6) g/dL Urine Color (Yellow) Urine Appearance (CLEAR) Urine pH (5-7) Ur Specific Gravit y (1.005-1.030) Urine Protein (Negative) Urine Glucose (UA) (Normal) Urine Ketones (Negative) Urine Blood (Negative) Urine Nitrate (Negative) Urine Bilirubin (Negative) Urine Urobilinogen (Negative) mg/dL Ur Leukocyte Kerry ase (Negative) Urine RBC (0-2) /hpf Urine WBC (0-5) /hpf Ur Squamous Epith Cells (0-5) /hpf Amorphous Sediment Urine Bacteria (NONE) /hpf 06/29/21 Range/Units 01:20 WBC (4.0-10.0) 10^3/ uL RBC (4.1-5.3) 10^6/u L Hgb (11.7-16.6) g/dL Hct (42.0-52.0) % MCV (80-94) fL MCH (28.0-34.0) pg MCHC (30.0-36.0) g/dL RDW (12.1-15.1) % Plt Count (130-400) 10^3/c mm MPV (7.4-10.4) fL Neut % (Auto) % Lymph % (Auto) % [place] % (Auto) % Eos % (Auto) % Baso % (Auto) % Neut # (Auto) (1.8-7.7) 10^3/u L Lymph # (Auto) (0.8-4.8) 10^3/u L [place] # (Auto) (0.2-0.9) 10^3/u L Eos # (Auto) (0.0-0.8) 10^3/u L Baso # (Auto) (0.0-0.1) 10^3/u L Nucleated RBC % (a uto) % Nucleated RBCs # /100WBC Specimen Type Sample Site ABG pH (7.35-7.45) ABG pCO2 (35-45) mmHg ABG pO2 (80.0-100.0) mmH g ABG HCO3 (22-26) mmol/L ABG Base Excess (-2.0-2.0) mmol/ L Alexi Test Hematocrit (42-52) % O2 Delivery Device FiO2 % Service Counselor ID Blood Gas Notified Time Sodium (136-145) mmol/L Potassium (3.5-5.1) mmol/L Chloride (98-107) mmol/L Carbon Dioxide (22-29) mmol/L Anion Gap (5-19) BUN (8-23) mg/dL Creatinine (0.7-1.2) mg/dL GFR Calculation Glucose (65-115) mg/dL Calculated Osmolal ity (285-295) mOsm/k g Lactate (0.5-2.2) mmol/L Calcium (8.5-10.5) mg/dL Magnesium (1.7-2.3) mg/dL Total Bilirubin (0.15-1.2) mg/dL AST (0-40) U/L ALT (0-41) U/L Alkaline Phosphata se (40-130) IU/L Ammonia (16-60) umol/L Troponin T Baselin e (0-15) ng/L Total Protein (6.6-8.7) g/dL Albumin (3.5-5.2) g/dL Globulin (1.3-4.6) g/dL Urine Color Yellow (Yellow) Urine Appearance Sl hazy (CLEAR) Urine pH 5 (5-7) Ur Specific Gravit y 1.010 (1.005-1.030) Urine Protein Neg (Negative) Urine Glucose (UA) Trace H (Normal) Urine Ketones Negative (Negative) Urine Blood 2+ H (Negative) Urine Nitrate Negative (Negative) Urine Bilirubin Neg (Negative) Urine Urobilinogen Norm (Negative) mg/dL Ur Leukocyte Kerry ase 2+ H (Negative) Urine RBC 5-10 H (0-2) /hpf Urine WBC Too numerous to c nt H (0-5) /hpf Ur Squamous Epith Cells 0-4 H (0-5) /hpf Amorphous Sediment Not Reportable Urine Bacteria 4+ H (NONE) /hpf Discharge Plan Discharge Patient Disposition: Home Clinical Impression: Altered mental status Qualifiers: Altered mental status type: stupor Qualified Code(s): R40.1 - Stupor Urinary tract infection Qualifiers: Urinary tract infection type: acute cystitis Hematuria presence: without hematuria Qualified Code(s): N30.00 - Acute cystitis without hematuria Condition: Stable Prescriptions: New cefdinir 300 mg capsule 300 mg PO BID 10 Days Qty: 20 RF: 0 No Action (DME) Wheelchair See Rx Instructions .ROUTE .MEDSUPPLY Qty: 1 RF: 0 (DME) Articulating afo brace See Rx Instructions .Route .MEDSUPPLY Qty: 1 RF: 0 mupirocin 2 % ointment 1 applic topical BID Qty: 15 RF: 0 (DME) Manual Wheel Chair with right leg extension & A Bed Side Commode See Rx Instructions .Route .MEDSUPPLY Qty: 1 RF: 0 oxazepam 10 mg capsule 10 mg PO DAILY RF: 0 cefpodoxime 200 mg tablet 200 mg PO BID RF: 0 oxybutynin chloride 10 mg tablet extended release 24hr 10 mg PO DAILY RF: 0 simvastatin 20 mg tablet 20 mg PO DAILY RF: 0 lisinopril 10 mg tablet 10 mg PO DAILY RF: 0 metoprolol tartrate 50 mg tablet 50 mg PO DAILY RF: 0 PreviDent 5000 Dry Mouth 1.1 % gel See Rx Instructions .ROUTE .COMPLEX RF: 0 finasteride 5 mg tablet 5 mg PO DAILY RF: 0 diclofenac sodium 1 % gel See Rx Instructions .ROUTE .COMPLEX RF: 0 Discharge Orders: Discharge ED (Routine); Ordered 06/29/21 Ordered By: Ramon Jordan Referrals: Terrell Meade DO [Primary Care Provider] - 4-7 days Patient Instructions: Urinary Tract Infection in Men (ED), Altered Mental Status (ED) Activity Restrictions/Additional Instructions: Antibiotics as directed. Consider not using the Ambien for sleep while ill at least. Return for fever greater than 100 despite 2-3 doses of antibiotics, worsening mental status despite treatment, worsening weakness despite treatment, any other concerning symptoms. Coding Level of Care Code ED Oil Well Drilling Manager for Herb Coughlin Exam Comprehensive
--- NOTE | 2021-06-29 01:41 | ECG_ITS ---
[facility] Test Date: 2021-06-29 Pat Name: Aldo Esparza Department: Room: Gender: Male Facility Coordinator: : 1935 Requested By: Ramon Walton Order Number: [id number] Reading MD: CAMACHO TREVIZO Measurements Intervals [place] Rate: 62 P: -51 GA: 179 QRS: 46 QRSD: 90 T: 63 QT: 424 QTc: 434 Interpretive Statements SINUS RHYTHM MINIMAL ST DEPRESSION [0.025+ mV ST DEPRESSION] No previous ECG available for comparison Electronically Signed On 06-29-2021 20:31:02 CDT by CAMACHO TREVIZO [id number]
[2021-06-29 01:48] LABS: Basophils % 0.4 %; Eosinophils # 0.2 10^3/uL (0.0-0.8); Eosinophils % 3.2 %; Hematocrit 37.4 % (42.0-52.0); Hemoglobin 12.1 g/dL (11.7-16.6); Lymphocytes # 1.7 10^3/uL (0.8-4.8); Lymphocytes % 23.5 %; Mean Corpuscular HGB Conc 32.4 g/dL (30.0-36.0); Mean Corpuscular Hemoglobin 32.7 pg (28.0-34.0); Mean Corpuscular Volume 101.1 fL (80-94); Mean Platelet Volume 9.8 fL (7.4-10.4); Monocytes % 14.3 %; Neutrophils # 4.21 10^3/uL (1.8-7.7); Neutrophils % 57.8 %; Nucleated Red Blood Cells % 0 %; Platelet Count 327 10^3/cmm (130-400); Red Cell Distribution Width 12.9 % (12.1-15.1); White Blood Count 7.3 10^3/uL (4.0-10.0)
[2021-06-29 02:09] LABS: Ammonia 33 umol/L (16-60); Lactate (Lactic Acid level) 0.8 mmol/L (0.5-2.2)
[2021-06-29 02:10] LABS: Troponin(5th) Baseline 35 ng/L (0-15)
[2021-06-29 02:11] LABS: Alanine Aminotransferase 15 U/L (0-41); Albumin Level 3.5 g/dL (3.5-5.2); Alkaline Phosphatase 123 IU/L (40-130); Anion Gap 15.5 (5-19); Aspartate Amino Transferase 20 U/L (0-40); Blood Urea Nitrogen 26 mg/dL (8-23); Calcium 9.9 mg/dL (8.5-10.5); Carbon Dioxide 22 mmol/L (22-29); Chloride 100 mmol/L (98-107); Globulin 2.4 g/dL (1.3-4.6); Glucose 93 mg/dL (65-115); Magnesium 2.1 mg/dL (1.7-2.3); Osmolality Calculated 280 mOsm/kg (285-295); Potassium 4.5 mmol/L (3.5-5.1); Sodium 133 mmol/L (136-145); Total Bilirubin 0.3 mg/dL (0.15-1.2); Total Protein 5.9 g/dL (6.6-8.7)
[2021-06-29 02:27] LABS: ABG PCO2 42.1 mmHg (35-45); Arterial Blood Gas Hematocrit 36.7 % (42-52); Base Excess ABG 1.1 mmol/L (-2.0-2.0); Blood Gas Allen Test Pos; Blood Gas Operator Identificat MONRO; Blood Gas Sample Site Radial, left; Blood Gas Sample Type Arterial; HCO3 ABG 26.1 mmol/L (22-26); Oxygen Device ROOM AIR; PO2 ABG 58.7 mmHg (80.0-100.0)
[2021-06-29 02:34] LABS: Add Urine Microscopic? YES; Bilirubin Urine Neg (Negative); Blood Urine 2+ (Negative); Glucose Urine UA Trace (Normal); Ketones Urine Negative (Negative); Leukocyte Esterase Urine 2+ (Negative); Nitrate Urine Negative (Negative); Protein Urine Neg (Negative); Urine Appearance SL Hazy (CLEAR); Urine Color Yellow (Yellow); Urobilinogen Urine Norm (Negative); pH Urine 5 (5-7)
[2021-06-29 02:37] LABS: Add Urine Culture? Yes; Bacteria Urine 4+ /hpf; Squamous Epithelial Cell Urine 0-4 /hpf (0-5); WBC Urine TOO NUMEROUS TO CNT /hpf (0-5)
[2021-06-29] MEDS: cefTRIAXone 1,000 MG in sodium chloride 0.9% (plus) 100 ML 200 MG IV (03:34)
--- NOTE | 2021-06-29 05:41 | ECG_ITS ---
[facility] Test Date: 2021-06-29 Pat Name: Aldo Esparza Department: Room: Gender: Male Meat Manager: : 1935 Requested By: Ramon Walton Order Number: [id number] Reading MD: CAMACHO TREVIZO Measurements Intervals [place] Rate: 63 P: 228 SD: 175 QRS: 199 QRSD: 94 T: 136 QT: 425 QTc: 436 Interpretive Statements SINUS RHYTHM MARKED RIGHT AXIS DEVIATION [QRS AXIS > 100] Compared to ECG 06/29/2021 01:07:22 Right-axis deviation now present ST (T wave) deviation no longer present Electronically Signed On 06-29-2021 20:30:57 CDT by CAMACHO TREVIZO [id number]
[2021-06-29 06:51] VITALS: BP 175/75; PULSE 70; RESP 16; O2SAT 96
== END 2021-06-29 07:40 | disposition home or self-care (01) ==
PROVIDERS: Nurse Practitioner Family; Emergency Provider Emergency Medicine; PCP Family Medicine
DX: R40.1 Stupor (principal); N30.00 Acute cystitis without hematuria
CPT/HCPCS: 36600; 70450; 80053; 81001; 82140; 82803; 83605; 83735; 84484; 85025; 87077; 87086; 87186; 93005; 96365; 99284; J0696

== ENCOUNTER → 2021-07-04 16:01 | Outpatient (BNVA) | payer OTHER, MEDICARE, SELFPAY | PROVIDERS: PCP Family Medicine; Visit Provider Nurse Practitioner Family | DX: N30.00 Acute cystitis without hematuria (principal) | CPT/HCPCS: 81003; 87077; 87086; 87184 ==

== ENCOUNTER → 2021-07-23 17:06 | Outpatient (BNVA) | payer MEDICARE, SELFPAY | PROVIDERS: PCP Family Medicine; Visit Provider Urology | DX: N39.44 Nocturnal enuresis (principal); R82.71 Bacteriuria | CPT/HCPCS: 81003; 87077; 87086; 87184 ==

== ENCOUNTER → 2021-07-29 11:13 | Outpatient (BNVA) | payer MEDICARE, SELFPAY | PROVIDERS: PCP Family Medicine; Visit Provider Podiatrist Foot & Ankle Surgery | DX: S82.831A Other fracture of upper and lower end of right fibula, initial encounter for closed fracture (principal); L97.512 Non-pressure chronic ulcer of other part of right foot with fat layer exposed; M79.671 Pain in right foot; M14.671 Charcot's joint, right ankle and foot; X58.XXXA Exposure to other specified factors, initial encounter | CPT/HCPCS: 73610 ==

== ENCOUNTER 2021-09-24 14:02 | Outpatient (CLI) | payer MEDICARE, SELFPAY ==
--- NOTE | 2021-09-24 14:15 | XR_ITS ---
WS: [id number] Exam: XR [id number] Date/Time of Exam: 09/24/2021 2:19 PM Reason For Exam: BACTERIURIA Large area gastrectasis noted. Moderate amount stool and gas in the colon. No free air. No calcificat ions identified over the region of the kidneys however these areas are obscured by significant GI gas . Nonspecific pelvic calcifications are noted. Organ margins are obscured. Degenerative change and sc oliosis of the lumbar spine. XR/XR KUB [id number] IMPRESSION: 1. Large air gastrectasis noted. Etiology is unclear. Gastric outlet obstructio n might be a consideration however this may represent chronic gastroparesis. 2. Moderate amount stool and gas in the colon. 3. The kidneys are obscured.
== END 2021-09-24 14:03 | disposition home or self-care (01) ==
LOC: RAD 14:11
PROVIDERS: PCP Family Medicine; Visit Provider Urology
DX: R82.71 Bacteriuria (principal); K31.0 Acute dilatation of stomach
CPT/HCPCS: 74018; 81003; 87077; 87086; 87184

== ENCOUNTER → 2021-10-18 13:58 | Outpatient (BNVA) | payer MEDICARE, SELFPAY | PROVIDERS: PCP Family Medicine; Visit Provider Nurse Practitioner | DX: J02.9 Acute pharyngitis, unspecified (principal); R09.82 Postnasal drip | CPT/HCPCS: 87070; 87071; 87077; 87184; 87880 ==

== ENCOUNTER 2021-10-31 09:42 | Outpatient (CLI) | payer MEDICARE, SELFPAY ==
--- NOTE | 2021-10-31 09:52 | FL_ITS ---
WS: [id number] Modified barium swallow, 10/31/2021 Clinical Data: Other dysphagia Comparison: None. Fluoroscopy time: 2.1 minutes. Findings: The patient had mild oral residue that cleared with double swallows. There is premature spillage with multiple consistencies, but there is no penetration or aspiration. 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 FL/FL barium swallow modifd [id number] Impression: 1. Minimal oral residue. 2. Premature spillage with multiple consistencies but no penetration or aspirat ion. 3. Pulsion diverticulum.
== END 2021-10-31 09:43 | disposition home or self-care (01) ==
LOC: RAD 09:46
PROVIDERS: PCP Family Medicine; Visit Provider Clinical Nurse Specialist Adult Health
DX: R11.10 Vomiting, unspecified (principal); R13.10 Dysphagia, unspecified; K57.90 Diverticulosis of intestine, part unspecified, without perforation or abscess without bleeding
CPT/HCPCS: 74230; 92611

== ENCOUNTER → 2021-11-08 15:36 | Outpatient (BNVA) | payer MEDICARE, SELFPAY | PROVIDERS: PCP Family Medicine; Visit Provider Podiatrist Foot & Ankle Surgery | DX: S82.891D Other fracture of right lower leg, subsequent encounter for closed fracture with routine healing (principal); M25.771 Osteophyte, right ankle; X58.XXXD Exposure to other specified factors, subsequent encounter | CPT/HCPCS: 73610 ==

== ENCOUNTER 2022-02-01 08:30 | Inpatient (IN) | payer MEDICARE, SELFPAY ==
[2022-02-01] VITALS (8 sets, daily range): BP systolic 92–167; BP diastolic 47–72; PULSE 58–89; RESP 16–24; TEMP 36.4–37.2; O2SAT 90–98; BMI 33.3
--- NOTE | 2022-02-01 08:52 | ED_ITS ---
HPI - General Adult General: Chief complaint: Weakness Stated complaint: Extreme Weakness, toes purple, N/D Time Seen by Provider: 02/01/22 08:34 History of Present Illness: 86-year-old male presents emergency room generally feeling weak altered mental status diarrhea for the last 2 days. He is alert and answers questions. He denies any chest pain he does seem somewhat short of breath and he admits the same he denies any abdominal discomfort. He uses a [place] condom cath at night. He denies fever sweats chills. No productive cough. Onset (ago): day(s) (2) Severity: moderate Quality: aching Pain Consistency: constant Relieving factors: none Exacerbating factors: none Associated symptoms: Reports confusion, cough, decreased appetite, malaise and nausea; Deny chest pain, diaphoresis, dyspnea, fevers/chills, headache(s), rash, palpitations, seizures, short of breath, syncope, vomiting or weakness Treatments prior to arrival: none Review of Systems Const: Reports: malaise; Denies: diaphoresis ENMT: Denies: throat pain, ear or mastoid pain, nasal discharge or nasal congestion Card: Denies: chest pain, palpitations or syncope Resp: Denies: dyspnea GI: Reports: nausea; Denies: vomiting : Denies: flank pain, dysuria, urinary frequency or urinary urgency Skin/Breast: Denies: rash Neuro: Reports: confusion; Denies: headache(s) [facility] ED PFSH: Medical History Ankle fracture Charcot's arthropathy Nocturnal enuresis Surgical History History of knee replacement History of prostate surgery Hx of heart artery stent Family History Mother , AT AGE 70 Stroke Father , AT AGE 85 Cancer PROSTATE Social History Smoking and tobacco status: never smoked Alcohol intake: never Substance/Drug Use: never Marital status: Current occupational status: retired History of recent travel: No Physical Exam Const: GENERAL APPEARANCE: cooperative ORIENTATION/CONSCIOUSNESS: Yes awake, Yes oriented to person, Yes oriented to place and Yes oriented to time HENMT: COMMON NORMALS: normocephalic, atraumatic, hearing grossly normal bilaterally, external ears normal, EAC's normal, TM's normal bilaterally and Normal nasal mucous membranes and turbinates present HEAD & SCALP: normocephalic and atraumatic NOSE: Normal nasal mucous membranes and turbinates present EXTERNAL EAR: Yes external ears normal EXTERNAL AUDITORY CANAL: EAC's normal TYMPANIC MEMBRANE: TM's normal bilaterally MOUTH: moist mucous membranes abnormal (Dry) Eye: COMMON NORMALS: Equal, round and reactive pupils present, EOMs intact bilaterally, conjunctivae normal and no scleral icterus CONJUNCTIVA: Yes conjunctivae normal PUPIL: Yes Equal, round and reactive pupils present Neck/C-Spine: COMMON NORMALS: no JVD Resp: COMMON NORMALS: normal respiratory effort, No retractions, No use of accessory muscles and clear to auscultation bilaterally AUSCULTATION: clear to auscultation bilaterally Cardio: COMMON NORMALS: no JVD, regular rate, regular rhythm and No murmurs present (Cardio) RATE: regular rate RHYTHM: regular rhythm GI: COMMON NORMALS: Soft to palpation and No hepatosplenomegaly present AUSCULTATION: Yes normoactive bowel sounds PALPATION: Yes Soft to palpation, No Tenderness to palpation present (GI), No Guarding due to palpation present (GI) and Yes No hepatosplenomegaly present Extremity: COMMON NORMALS: normal to inspection, capillary refill normal, no clubbing, cyanosis or edema, no calf tenderness and no pedal edema Neuro: SENSORIUM/ORIENTATION: Yes oriented to person, Yes oriented to place and Yes oriented to time Skin: COMMON NORMALS: no rashes or lesions noted GENERAL SKIN EXAM: no rashes or lesions noted Course Vital Signs: Vital signs: Vital Signs Temperature 98.1 F 02/01/22 16:00 Pulse Rate 89 02/01/22 16:00 Respiratory Rate 18 02/01/22 16:00 Blood Pressure 138/72 02/01/22 16:00 Pulse Oximetry 90 02/01/22 16:00 [facility] - General Adult Medical Decision Making Patient acute renal failure with signs of sepsis elevated white count and hypotension. His lactate is normal. He was given IV fluids. His acute kidney failure as well as hyperkalemia. His hyperkalemia was addressed to calcium chloride sodium bicarb and Kayexalate. He is being given fluids which his blood pressures responded to his been cultured he will be started on IV antibiotics. Erickson was placed with a return of 1700 mL I think his renal failure in large part was due to bladder outlet obstruction. Discussed with nephrology and with hospitalist orders have been written patient will be admitted. [facility] called with concerns regarding the catheter. Discussed with the nurse taking care of the patient balloon is deflated advanced and then reinflated. Continues to have good output. Medical Records I reviewed the patient's medical records. Lab Data I reviewed the patient's lab results. : 02/01/22 14:04 02/01/22 09:20 Radiology Impressions Chest X-Ray 02/01/22 08:53 IMPRESSION: 1. Emphysematous change, interstitial prominence, and chronic granulomatous disease. 2. Additional findings as described above. Abdomen/Pelvis CT 02/01/22 10:48 IMPRESSION: 1. Bladder wall is thickened and irregular in contour. This is nonspecific and may represent bladder outlet obstruction, inflammation or infection. Neoplastic process is included in the differential. 2. Mild bilateral hydronephrosis/hydroureter or without an obstructing ureteral calculus identified. 3. Erickson catheter balloon appears to be positioned partially within the prostatic urethra extending into the base of the bladder. 4. 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 COMMENTS: Consistent with the [place] [employer]'s Incidental Findings Committee white paper (J Am Jimmy Radiol 2018): Any incidental renal lesion less than 1 cm or classified as too small to characterize, or any incidental cystic renal lesion characterized as simple-appearing, is likely benign. No follow-up imaging is recommended for these lesions per consensus recommendations based on imaging criteria. ADDENDUM: 02/01/22 [id number] CRITICAL RESULT: The study was personally discussed on the telephone with MILTON Kunz on 02/01/2022 12:49 PM VP DIRECTOR OF CREATIVE STRATEGY. The results were understood and acknowledged. There are several cystic lesions in the right kidney the larger of which measures 1.9 cm. These may represent benign hyperdense cyst however cannot be further characterized without IV contrast. Head CT 02/01/22 10:49 IMPRESSION: No acute intracranial pathology. Laboratory Results WBC 20.5 10^3/uL (4.0-10.0) H 02/01/22 08:53 RBC 3.70 10^6/uL (4.1-5.3) L 02/01/22 08:53 Hgb 11.8 g/dL (11.7-16.6) 02/01/22 08:53 Hct 36.6 % (42.0-52.0) L 02/01/22 08:53 MCV 98.9 fl (80-94) H 02/01/22 08:53 MCH 31.9 pg (28.0-34.0) 02/01/22 08:53 MCHC 32.2 g/dL (30.0-36.0) 02/01/22 08:53 RDW 13.7 % (12.1-15.1) 02/01/22 08:53 Plt Count 291 10^3/cmm (130-400) 02/01/22 08:53 MPV 10.2 fL (7.4-10.4) 02/01/22 08:53 Neut % (Auto) 89.4 % 02/01/22 08:53 Lymph % (Auto) 2.6 % 02/01/22 08:53 [place] % (Auto) 6.0 % 02/01/22 08:53 Eos % (Auto) 0.2 % 02/01/22 08:53 Baso % (Auto) 0.4 % 02/01/22 08:53 Neut # (Auto) 18.29 10^3/uL (1.8-7.7) H 02/01/22 08:53 Lymph # (Auto) 0.5 10^3/uL (0.8-4.8) L 02/01/22 08:53 [place] # (Auto) 1.2 10^3/uL (0.2-0.9) H 02/01/22 08:53 Eos # (Auto) 0.0 10^3/uL (0.0-0.8) 02/01/22 08:53 Baso # (Auto) 0.1 10^3/uL (0.0-0.1) 02/01/22 08:53 Nucleated RBC % (auto) 0.1 % 02/01/22 08:53 Nucleated RBCs # 0.0 /100WBC 02/01/22 08:53 Sodium 130 mmol/L (136-145) L 02/01/22 09:20 Potassium 5.7 mmol/L (3.5-5.1) H 02/01/22 09:20 Chloride 95 mmol/L (98-107) L 02/01/22 09:20 Carbon Dioxide 16 mmol/L (22-29) L 02/01/22 09:20 Anion Gap 24.7 (5-19) H 02/01/22 09:20 BUN 105 mg/dL (8-23) H* D 02/01/22 09:20 Creatinine 4.7 mg/dL (0.7-1.2) H 02/01/22 09:20 GFR Calculation Not Reportable 02/01/22 09:20 Glucose 158 mg/dL (65-115) H 02/01/22 09:20 Calculated Osmolality 306 mOsm/kg (285-295) H 02/01/22 09:20 Lactic Acid 2.0 mmol/L (0.5-2.2) 02/01/22 09:20 Calcium 9.8 mg/dL (8.5-10.5) 02/01/22 09:20 Total Bilirubin 0.2 mg/dL (0.15-1.2) 02/01/22 09:20 AST 51 U/L (0-40) H 02/01/22 09:20 ALT 38 U/L (0-41) 02/01/22 09:20 Alkaline Phosphatase 186 IU/L (40-130) H 02/01/22 09:20 Creatine Kinase 398 U/L (39-308) H* 02/01/22 09:20 CK-MB (CK-2) 27.6 ng/mL (0-10.4) H 02/01/22 09:20 CK-MB (CK-2) Rel Index 6.9 % (0.0-5.3) H 02/01/22 09:20 Total Protein 6.7 g/dL (6.6-8.7) 02/01/22 09:20 Albumin 2.9 g/dL (3.5-5.2) L 02/01/22 09:20 Globulin 3.8 g/dL (1.3-4.6) 02/01/22 09:20 Urine Color Yellow (Yellow) 02/01/22 10:03 Urine Appearance Cloudy (CLEAR) 02/01/22 10:03 Urine pH 5 (5-7) 02/01/22 10:03 Ur Specific [place] 1.015 (1.005-1.030) 02/01/22 10:03 Urine Protein 1+ (Negative) H 02/01/22 10:03 Urine Glucose (UA) Norm (Normal) 02/01/22 10:03 Urine Ketones Negative (Negative) 02/01/22 10:03 Urine Blood 3+ (Negative) H 02/01/22 10:03 Urine Nitrate Negative (Negative) 02/01/22 10:03 Urine Bilirubin Neg (Negative) 02/01/22 10:03 Urine Urobilinogen Norm mg/dL (Negative) 02/01/22 10:03 Ur Leukocyte Esterase 2+ (Negative) H 02/01/22 10:03 Urine RBC 5-10 /hpf (0-2) H 02/01/22 10:03 Urine WBC >100 /hpf (0-5) H 02/01/22 10:03 Ur Squamous Epith Cells 5-10 /hpf (0-5) H 02/01/22 10:03 Amorphous Sediment Not Reportable 02/01/22 10:03 Urine Bacteria 2+ /hpf (NONE) H 02/01/22 10:03 Discharge Plan Discharge Patient Disposition: Admitted As Inpatient Admit Provider: Kamran Garay Clinical Impression: YURIY (acute kidney injury), Acute encephalopathy, Sepsis, Urine retention, Hydroureteronephrosis, Hyperkalemia, Charcot arthropathy of midfoot Condition: Stable Coding Level of Care Code ED Shear Setter for Chg Fwd Exam Comprehensive
--- NOTE | 2022-02-01 08:53 | XRR_ITS ---
PROCEDURE INFORMATION: Exam: XR Chest Exam date and time: 02/01/2022 8:53 AM Age: 86 years old Clinical indication: Cough and dyspnea; Additional info: Dyspnea/cough TECHNIQUE: Imaging protocol: XR of the chest. Views: 1 view. COMPARISON: None FINDINGS: Lungs: Asymmetric elevation of the left hemidiaphragm and subsegmental atelectasis. Emphysematous change, interstitial prominence, and chronic granulomatous disease. Pleural spaces: No significant pleural effusion. Heart/Mediastinum: Cardiac silhouette accentuated by epicardial fat. Bones/joints: Osteopenia and degenerative change. Soft tissues: Left-sided skin fold. Gastrointestinal tract: Gaseous dilatation of the stomach. XR/XR chest 1V portable [id number] IMPRESSION: 1. Emphysematous change, interstitial prominence, and chronic granulomatous disease. 2. Additional findings as described above.
--- NOTE | 2022-02-01 08:53 | ECG_ITS ---
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 Measurements Intervals [place] Rate: 70 P: MO: QRS: 27 QRSD: 105 T: -73 QT: 389 QTc: 421 Interpretive Statements Sinus rhythm ST DEVIATION AND MODERATE T-WAVE ABNORMALITY, CONSIDER INFERIOR ISCHEMIA [-0.1+ mV T-WAVE IN II/aVF] Compared to ECG 06/29/2021 03:20:36 T-wave abnormality now present Possible ischemia now present Sinus rhythm no longer present Right-axis deviation no longer present Electronically Signed On 02-02-2022 12:11:01 TOOL GRINDING TECHNICIAN by Marion Ordaz M.D. [email or web address]
--- NOTE | 2022-02-01 08:55 | PC.NURSE ---
PT PLACED ON CONTINUOUS SPO2, NIBP, AND CM.
[2022-02-01 09:12] LABS: Basophils # 0.1 10^3/uL (0.0-0.1); Basophils % 0.4 %; Eosinophils % 0.2 %; Hematocrit 36.6 % (42.0-52.0); Hemoglobin 11.8 g/dL (11.7-16.6); Lymphocytes # 0.5 10^3/uL (0.8-4.8); Lymphocytes % 2.6 %; Mean Corpuscular HGB Conc 32.2 g/dL (30.0-36.0); Mean Corpuscular Hemoglobin 31.9 pg (28.0-34.0); Mean Corpuscular Volume 98.9 fl (80-94); Mean Platelet Volume 10.2 fL (7.4-10.4); Monocytes # 1.2 10^3/uL (0.2-0.9); Neutrophils # 18.29 10^3/uL (1.8-7.7); Neutrophils % 89.4 %; Nucleated Red Blood Cells % 0.1 %; Platelet Count 291 10^3/cmm (130-400); Red Cell Distribution Width 13.7 % (12.1-15.1); White Blood Count 20.5 10^3/uL (4.0-10.0)
[2022-02-01] MEDS: sodium chloride 0.9% 500 ML 999 ML IV (09:15)
[2022-02-01 09:49] LABS: Alanine Aminotransferase 38 U/L (0-41); Albumin Level 2.9 g/dL (3.5-5.2); Alkaline Phosphatase 186 IU/L (40-130); Anion Gap 24.7 (5-19); Aspartate Amino Transferase 51 U/L (0-40); Calcium 9.8 mg/dL (8.5-10.5); Carbon Dioxide 16 mmol/L (22-29); Chloride 95 mmol/L (98-107); Globulin 3.8 g/dL (1.3-4.6); Glucose 158 mg/dL (65-115); Osmolality Calculated 306 mOsm/kg (285-295); Potassium 5.7 mmol/L (3.5-5.1); Sodium 130 mmol/L (136-145); Total Bilirubin 0.2 mg/dL (0.15-1.2); Total Protein 6.7 g/dL (6.6-8.7)
[2022-02-01 09:55] LABS: Blood Urea Nitrogen 105 mg/dL (8-23)
[2022-02-01 09:56] LABS: Creatine Phosphokinase 398 U/L (39-308)
[2022-02-01 10:22] LABS: Add Urine Microscopic? YES; Bilirubin Urine Neg (Negative); Blood Urine 3+ (Negative); Glucose Urine UA Norm (Normal); Ketones Urine Negative (Negative); Leukocyte Esterase Urine 2+ (Negative); Nitrate Urine Negative (Negative); Protein Urine 1+ (Negative); Specific Gravity, Urine 1.015 (1.005-1.030); Urine Appearance Cloudy (CLEAR); Urine Color Yellow (Yellow); Urobilinogen Urine Norm (Negative); WBC Urine >100 /hpf (0-5); pH Urine 5 (5-7)
[2022-02-01 10:23] LABS: Add Urine Culture? Yes; Bacteria Urine 2+ /hpf
[2022-02-01 10:24] LABS: CKMB 27.6 ng/mL (0-10.4); CKMB Relative Index 6.9 % (0.0-5.3)
--- NOTE | 2022-02-01 10:48 | CTR_ITS ---
PROCEDURE INFORMATION: Exam: CT Abdomen And Pelvis Without Contrast Exam date and time: 02/01/2022 10:48 AM Age: 86 years old Clinical indication: Abdominal pain; Flank; Left; Additional info: Flank pain TECHNIQUE: Imaging protocol: Computed tomography of the abdomen and pelvis without contrast. Radiation optimization: All CT scans at this facility use at least one of these dose optimization techniques: automated exposure control; mA and/or kV adjustment per patient size (includes targeted exams where dose is matched to clinical indication); or iterative reconstruction. COMPARISON: CR XR KUB [id number] 09/24/2021 2:22 PM RADIATION DOSE METRICS: Total DLP (mGy-cm): 1954.57 FINDINGS: Liver: Normal. No mass. Gallbladder and bile ducts: Normal. No calcified stones. No ductal dilation. Pancreas: Moderate fatty atrophy of the pancreas. Spleen: Normal. No splenomegaly. Adrenal glands: Normal. No mass. Kidneys and ureters: Mild bilateral hydronephrosis/hydroureter. Bilateral extrarenal pelves. There are several cystic lesions with internal complexity in the right kidney the larger of which measures 1.9 cm off the superolateral aspect of the right kidney. This lesion measures 23 Hounsfield units in density. Stomach and bowel: Unremarkable. No obstruction. No mucosal thickening. Appendix: No evidence of appendicitis. Intraperitoneal space: Unremarkable. No free air. No significant fluid collection. Vasculature: Calcified plaque is present within multiple vascular structures. 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 Lymph nodes: Unremarkable. No enlarged lymph nodes. Urinary bladder: Bladder wall is thickened and irregular in contour. Erickson catheter balloon appears to be positioned partially within the prostatic urethra extending to the base of the bladder. There are calcifications in the prostate gland. Small foci of air in the bladder are likely iatrogenic in nature. Reproductive: See Urinary bladder finding. Bones/joints: There degenerative changes in the spine. A broad-based disc osteophyte complex at the L4-L5 level contributes to canal and bilateral neural foraminal narrowing. Soft tissues: Unremarkable. CT/CT kidney stone [id number] IMPRESSION: 1. Bladder wall is thickened and irregular in contour. This is nonspecific and may represent bladder outlet obstruction, inflammation or infection. Neoplastic process is included in the differential. 2. Mild bilateral hydronephrosis/hydroureter or without an obstructing ureteral calculus identified. 3. Erickson catheter balloon appears to be positioned partially within the prostatic urethra extending into the base of the bladder. 4. 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 COMMENTS: Consistent with the [employer]'s Incidental Findings Committee white paper (J Am Jimmy Radiol 2018): Any incidental renal lesion less than 1 cm or classified as too small to characterize, or any incidental cystic renal lesion characterized as simple-appearing, is likely benign. No follow-up imaging is recommended for these lesions per consensus recommendations based on imaging criteria.
--- NOTE | 2022-02-01 10:49 | CTR_ITS ---
PROCEDURE INFORMATION: Exam: CT Head Without Contrast Exam date and time: 02/01/2022 10:49 AM Age: 86 years old Clinical indication: Altered mental status/memory loss; Additional info: AMS TECHNIQUE: Imaging protocol: Computed tomography of the head without contrast. Radiation optimization: All CT scans at this facility use at least one of these dose optimization techniques: automated exposure control; mA and/or kV adjustment per patient size (includes targeted exams where dose is matched to clinical indication); or iterative reconstruction. COMPARISON: CT head wo con* [id number] 06/28/2021 11:53 PM RADIATION DOSE METRICS: Total DLP (mGy-cm): 988.91 FINDINGS: Brain: Symmetric prominence of the cortical sulci. Mild small vessel ischemic change. No acute cortical infarct, mass effect, or intracranial hemorrhage. Cerebral ventricles: Ventriculomegaly with asymmetric enlargement of the left occipital horn. Paranasal sinuses: 8 mm polypoid lesion in the right maxillary sinus. Mastoid air cells: No mastoid effusion. Vasculature: Vascular and dural calcifications. Bones/joints: No acute calvarial pathology. Soft tissues: Unremarkable soft tissues. Unremarkable soft tissues. When correlating with the previous study, no significant interval changes are present. CT/CT head wo con* [id number] IMPRESSION: No acute intracranial pathology.
[2022-02-01] MEDS: cefTRIAXone 1,000 MG in sodium chloride 0.9% (plus) 50 ML 100 MG IV (10:59)
[2022-02-01] MEDS: sodium bicarbonate 8.4% 1 mEq/mL 50mL Syr 100 MEQ IVP (12:24)
[2022-02-01] MEDS: ciprofloxacin 400 MG/200 ML PREMIX 200 MG IV (12:24)
[2022-02-01] MEDS: calcium chloride 10% Syr 10 mL 1 GM IVP (12:24)
[2022-02-01] MEDS: sodium polystyrene sulfonate 15 gm/60 mL Btl 30 GM PO (12:31)
--- NOTE | 2022-02-01 13:02 | PC.NURSE ---
1050 ml discarded from ramirez bag. report given tr santoro assumed care.
[2022-02-01] MEDS: sodium chloride 0.9% 1,000 ML 100 ML IV ×2 (13:44→22:30)
[2022-02-01] MEDS: heparin 5,000 unit/mL INJ 1 mL 5000 UNIT SUBCUT (14:16)
[2022-02-01 14:18] LABS: Basophils % 0.2 %; Eosinophils % 0.1 %; Hematocrit 31.4 % (42.0-52.0); Hemoglobin 10.2 g/dL (11.7-16.6); Lymphocytes # 0.7 10^3/uL (0.8-4.8); Lymphocytes % 3.7 %; Mean Corpuscular HGB Conc 32.5 g/dL (30.0-36.0); Mean Corpuscular Hemoglobin 32.8 pg (28.0-34.0); Mean Platelet Volume 9.6 fL (7.4-10.4); Monocytes # 1.1 10^3/uL (0.2-0.9); Monocytes % 6.3 %; Neutrophils # 15.74 10^3/uL (1.8-7.7); Neutrophils % 88.1 %; Nucleated Red Blood Cells % 0 %; Platelet Count 277 10^3/cmm (130-400); Red Blood Count 3.11 10^6/uL (4.1-5.3); Red Cell Distribution Width 13.8 % (12.1-15.1); White Blood Count 17.9 10^3/uL (4.0-10.0)
--- NOTE | 2022-02-01 14:18 | P.HP_ITS ---
Providers/Chief Complaint Admitting Physician: Kamran Garay Primary Care Provider: Terrell Meade DO Chief Complaint: Extreme Weakness, toes purple, N/D History of Present Illness Pleasant 86-year-old gentleman currently under hospice care due to hypertensive heart disease has been feeling very weak for the last several days, having some nausea, and mental status changes. He denies any fever or chills. Denies vomiting. To me denies diarrhea. He is having some mild cough which she says has been having for at least several months for which he takes cough suppressants as needed. In ER he is noted afebrile, but with leukocytosis of 20.5 thousand. Sodium is 130, potassium 5.7, BUN 105, creatinine 4.7, bicarb 16, anion gap 24.7. Glucose 158. AST 51, alk phos 186. CK 398. CT of the head without acute abnormality. Chest x-ray with emphysematous changes, interstitial prominence. Chronic granulomatous disease. UA with 1+ protein, 3+ blood, 2+ leukocyte esterase, 5-10 RBC, more than 100 WBC, 5-10 squamous epithelial cells. 2+ bacteria. Erickson catheter placed in ER, close to 1700 mL evacuated with insertion. CT abdomen pelvis obtained with bladder wall thi ckened and irregular in contour. Mild bilateral hydronephrosis/hydroureter without obstructing ureteral calculus. Erickson balloon position partially within prostatic urethra extending into the base of the bladder. Infrarenal abdominal aorta with aneurysm of 3.8 cm in AP dimension. Follow-up imaging in 2 years is recommended. Erickson catheter position was adjusted in ER. Review of Systems General: Reports: ROS unobtainable due to mental status Medications/Allergies Home Medications Medication Instructions Recorded Confirmed Last Taken Type diclofenac sodium 1 % topical gel 2 g TOPICAL QID PRN 04/20/21 02/01/22 Unknown History finasteride 5 mg tablet 5 mg PO DAILY 04/20/21 02/01/22 04/20/21 History lisinopril 10 mg tablet 10 mg PO DAILY 04/20/21 02/01/22 04/20/21 History metoprolol tartrate 50 mg tablet 50 mg PO BID 04/20/21 02/01/22 04/20/21 History oxazepam 10 mg capsule 10 mg PO BEDTIME 05/02/01/22 04/19/21 History simvastatin 20 mg tablet 20 mg PO DAILY 04/20/21 02/01/22 04/19/21 History docusate sodium 100 mg capsule 100 mg PO DAILY PRN 07/23/21 02/01/22 Unknown History escitalopram oxalate 10 mg tablet 10 mg PO DAILY 07/23/21 02/01/22 Unknown History acetaminophen 500 mg capsule 500 mg PO Q6H PRN 09/24/21 02/01/22 Unknown History benzonatate 100 mg capsule 100 mg PO TID PRN 09/24/21 02/01/22 Unknown History cholecalciferol (vitamin D3) 50 50 mcg PO DAILY 09/24/21 02/01/22 Unknown History mcg (2,000 unit) capsule methenamine hippurate 1 gram tablet 1 g PO BID #60 tab 09/27/21 02/01/22 Unknown Rx azelastine 137 mcg (0.1 %) nasal 2 spray INTRANASAL BID #30 ml 10/18/21 02/01/22 01/31/22 Rx spray aerosol acetaminophen 650 mg rectal 650 mg DC Q4H PRN 02/01/22 02/01/22 Unknown History suppository ascorbic acid (vitamin C) 1,000 mg 1,000 mg PO BID 02/01/22 02/01/22 Unknown History tablet (Vitamin C) atropine 1 % eye drops 2 - 4 drp OPHTHALMIC (EYE) Q1H PRN 02/01/22 02/01/22 Unknown History calcium polycarbophil 625 mg 1,250 mg PO DAILY 02/01/22 02/01/22 Unknown History tablet (Fiber-Lax) uwjiw-cnzupgeb-xfe-turp-pet 1 ea TOPICAL DAILY PRN 02/01/22 02/01/22 Unknown History topical ointment (Medicated Chest Rub) fluoride (sodium) 1.1 % dental gel 1 applic DENTAL BID 02/01/22 02/01/22 Unknown History (PreviDent) lorazepam 2 mg/mL oral concentrate 0.5 - 2 mg PO BID PRN 02/01/22 02/01/22 Unknown History morphine concentrate 100 mg/5 mL 0.5 - 2 mg PO Q1H PRN 02/01/22 02/01/22 Unknown History (20 mg/mL) oral solution ljfwnkjf-bzbtrmvp-yfnaz acid 400 1 tab PO DAILY 02/01/22 02/01/22 Unknown History mcg-vit K 20 mcg-lycop 300 mcg tablet (One-A-Day Men's Multivitamin) mupirocin 2 % topical ointment 1 applic TOPICAL QID 02/01/22 02/01/22 Unknown History ondansetron HCl 4 mg tablet 4 mg PO Q4H PRN 02/01/22 02/01/22 Unknown History (Zofran) pantoprazole 40 mg tablet,delayed 40 mg PO DAILY 02/01/22 02/01/22 Unknown History release Allergies Allergy/AdvReac Type Severity Reaction Status Date / Time No Known Allergies Allergy Verified 11/08/21 15:36 PFSH Acute PFSH: Medical History Ankle fracture Charcot's arthropathy Nocturnal enuresis Surgical History History of knee replacement History of prostate surgery Hx of heart artery stent Family History Mother , AT AGE 70 Stroke Father , AT AGE 85 Cancer PROSTATE Social History (Updated 02/01/22 @ 16:41 by Kamran Garay MD) Smoking and tobacco status: never smoked Alcohol intake: never Substance/Drug Use: never Marital status: Current occupational status: retired History of recent travel: No Vitals/I&O/Wt Last Vital Signs Temp 97.6 F 02/01/22 13:42 Pulse 65 02/01/22 13:42 Resp 20 H 02/01/22 13:42 BP 136/63 02/01/22 13:42 Pulse Ox 98 02/01/22 13:42 01/31/22 02/01/22 02/01/22 22:59 06:59 14:59 Intake Total 550 / 550 Balance 550 / 550 Weight last 48 hrs Weight 114.759 kg Physical Exam Narrative: nut sifter at bedside Const: GENERAL APPEARANCE: cooperative ORIENTATION/CONSCIOUSNESS: Yes awake and Yes confused HENMT: COMMON NORMALS: oropharynx normal Neck/C-Spine: COMMON NORMALS: no JVD Resp: COMMON NORMALS: normal respiratory effort and clear to auscultation bilaterally AUSCULTATION: clear to auscultation bilaterally Cardio: COMMON NORMALS: no JVD, regular rhythm, S1 normal heart sound present, S2 normal heart sound present and No murmurs present (Cardio) RHYTHM: regular rhythm HEART SOUNDS: S1 normal heart sound present and S2 normal heart sound present GI: COMMON NORMALS: Normal to inspection, nondistended, normoactive bowel sounds present, Soft to palpation and non-tender PALPATION: Yes Soft to p alpation Extremity: COMMON NORMALS: no joint enlargement and no pedal edema OTHER: R ankle brace Neuro: COMMON NORMALS: patient oriented x3 and moves all extremities Skin: COMMON NORMALS: no rashes or lesions noted GENERAL SKIN EXAM: no rashes or lesions noted Urinary Catheter Management: Erickson: Cath Placed During This Visit: yes Urinary Catheter Date of Insertion: 02/01/22 Urinary Catheter Time of Insertion: 10:52 Data : 02/01/22 14:04 02/01/22 09:20 Micro: Microbiology 02/01/22 09:21 Blood Culture - Preliminary Blood SPECIMEN COLLECTED 02/01/22 09:20 Blood Culture - Preliminary Blood SPECIMEN COLLECTED A&P Assessment and plan (1) Sepsis: Sepsis with leukocytosis, 17.9, tachypnea 21 breaths/min. Source is complicated urinary tract infection. Urinary retention relieved, Erickson placed. History of Enterococcus, pseudomonal UTI in May and June respectively in 2020. Antibiotics changed to Cipro. Continue. Follow-up urine culture. Lactic acid was 2. Hypotensive on presentation, but responded to fluid challenge, 138/72 currently. Status: Acute (2) Complicated urinary tract infection: With urinary obstruction, mild hydroureteronephrosis. Obstruction relieved. Continue Erickson. Treat UTI as above. Follow culture. Status: Acute (3) Urine retention: As above. Status: Acute (4) Acute encephalopathy: He is confused. Acute delirium secondary to acute metabolic encephalopathy sec ondary to urinary infection, acute kidney injury. Treat underlying conditions. Reorient. Status: Acute (5) YURIY (acute kidney injury): Creatinine 4.7. We do not have recent baseline, but appears to have been one in 2020. Some rhabdomyolysis, but mild. Discussed with family, likely postrenal secondary to urinary outflow obstruction, and prerenal secondary to low blood pressures. Possibly NSAID effect as well as I see he also receives diclofenac gel. Hold lisinopril. Hold metoprolol until blood pressure is steady as well. Hold statin for now. Hold NSAID. Received fluid challenge. Monitor I&O. Recheck renal function. Follow-up blood chemistry. Status: Acute (6) Hydroureteronephrosis: Expect this should resolve. Bilateral mild hydroureteronephrosis secondary to urinary bladder outlet obstruction. Maintain Erickson. Continue finasteride. Status: Acute (7) Aortic aneurysm: Incidentally noted on CT. Given his goals of care, no additional follow-up. Status: Acute (8) Hyperkalemia: Potassium 5.7. Received treatment in ER. Repeat level. Low potassium diet. Hold lisinopril. Status: Acute Plan Goals of care: Under hospice care. Has been becoming more functionally limited/debilitated recently. Family do not think he can return back to independent living. His also happens to be going to senior care. Will request case management director consultation for assistance with disposition planning and placement. He is daughter states he would not want more aggressive interventions like hemodialysis. 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
[2022-02-01] MEDS: ciprofloxacin 500 mg Tablet PO (16:17)
[2022-02-01 18:47] LABS: Anion Gap 27.1 (5-19); Calcium 10.6 mg/dL (8.5-10.5); Carbon Dioxide 12 mmol/L (22-29); Chloride 97 mmol/L (98-107); Glucose 143 mg/dL (65-115); Osmolality Calculated 306 mOsm/kg (285-295); Potassium 5.1 mmol/L (3.5-5.1); Sodium 131 mmol/L (136-145)
[2022-02-01 18:49] LABS: Blood Urea Nitrogen 102 mg/dL (8-23)
[2022-02-01] MEDS: mupirocin oint 22 gm 1 APPLIC TOPICAL (20:31)
[2022-02-02] VITALS: BP 112/64; RESP 18; TEMP 37.2; O2SAT 92
[2022-02-02] MEDS: heparin 5,000 unit/mL INJ 1 mL 5000 UNIT SUBCUT (02:21)
--- NOTE | 2022-02-02 03:36 | PC.NURSE ---
PTS EXPIRATION AT 0320 Had been in with pt giving SQ Heparin around 0230. He was talking to me and asking about his phone. Not long after this I was in the room with his who is in bed 1 in same room. She had c/o back pain and was given Tylenol. Then noted her HR to be elevated and had called for med for her. While RN and this nurse at bedside for IV Cardizem for her I looked around the curtain to check on Mr Esparza and he was noted to not be breathing. Unresponsive and no HR found. RN and Dr Casas was notified. Son Melvin was called. Was not able to get answer at [facility] who was primary notification. Melvin says family will be here. Have not told until family arrives. Dr Casas did come to room to pronounce pt
--- NOTE | 2022-02-02 03:58 | PC.NURSE ---
Family at bedside
--- NOTE | 2022-02-02 04:55 | PC.NURSE ---
FAMILY Family remains at bedside for comfort for who is pt in same room. They are not sure about arrangements for body as of yet. He will be going 3 hours away and not sure if Home from there will just come and get him or if they need him sent somewhere here. Wanting to stay until 8am when they can find something out.
--- NOTE | 2022-02-02 05:28 | PC.NURSE ---
HOSPICE NURSE Hospice nurse came in and bathed body and visited with family
--- NOTE | 2022-02-02 08:22 | P.DES_ITS ---
Discharge Providers DDS Date of Admission: 02/01/22 11:05 Date Summary Completed: 02/02/22 Attending Provider at Admission: Kamran Garay Time of : : Attending Provider at Discharge: Kamran Garay Primary Care Provider: DO BAKARI Schofield Diagnoses Hospital Diagnoses (1) Sepsis: (2) Complicated urinary tract infection: (3) Urine retention: (4) Acute encephalopathy: (5) YURIY (acute kidney injury): (6) Hydroureteronephrosis: (7) Aortic aneurysm: (8) Hyperkalemia: Reason for Visit Reason for Visit Extreme Weakness, toes purple, N/D Summary Date and Time of Date of : 02/02/22 Time of : : Summary Summary: Pleasant 86-year-old gentleman hospice patient was admitted due to severe sepsis on presentation secondary to complicated urinary tract infection, urinary outlet obstruction, mild hydroureteronephrosis on CT, ascending urinary infection, with acute kidney injury and acute encephalopathy on presentation. Creatinine 4.7 with baseline creatinine of 1 in May 2021. Initially with transient hypotension, mottling in extremities, did respond to initial fluid challenge, with soft blood pressure subsequently. Urinary bladder was decompressed with Erickson returning close to 1700 mL, initially noted Erickson balloon positioned partially in prostatic urethra, but was repositioned in ER. Received treatment for hyperkalemia. Cultures were collected, initially started on ceftriaxone, then broadened with ciprofloxacin due to infections with Enterococcus and Pseudomonas most recently. Renal function appeared to show some improvement although oliguric. Would not want renal replacement therapy as per prior wishes to withhold more aggressive medical interventions. Transiently lost IV access but this was reestablished. Continued to show mottling. Remained confused but not in distress. Was maintaining blood pressure. In the portable irrigation operator of 02/02 on bedside check by nurse he was unresponsive with loss of pulse and respirations. No resuscitative efforts undertaken in accordance with his goals of care. Time of noted at 0320 in the morning. 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
[2022-02-02 10:22] VITALS: BP 112/64; RESP 18; TEMP 37.2; O2SAT 92
--- NOTE | 2022-02-02 10:23 | PC.NURSE ---
Patient at 0320 on 02/02/22 in his room. Family called and came in. Released the body to the [facility] this morning.
== END 2022-02-02 10:23 | disposition expired | DRG 871 ==
LOC: ER 12:23 → MEDSURG 12:52
PROVIDERS: Admitting Provider Internal Medicine; Emergency Provider Family Medicine; PCP Family Medicine; Visit Provider Internal Medicine
DX: A41.9 Sepsis, unspecified organism (principal); G93.41 Metabolic encephalopathy; N17.9 Acute kidney failure, unspecified; N13.30 Unspecified hydronephrosis; N39.0 Urinary tract infection, site not specified; M62.82 Rhabdomyolysis; R65.20 Severe sepsis without septic shock; I25.10 Atherosclerotic heart disease of native coronary artery without angina pectoris; Z95.5 Presence of coronary angioplasty implant and graft; R33.9 Retention of urine, unspecified; E87.5 Hyperkalemia; M14.679 Charcot's joint, unspecified ankle and foot; I10 Essential (primary) hypertension; I71.4 Abdominal aortic aneurysm, without rupture; I95.9 Hypotension, unspecified
CPT/HCPCS: 36415; 51702; 70450; 71045; 74176; 80048; 80053; 81001; 82550; 82553; 83605; 85025; 87040; 87077; 87086; 87186; 87205; 93005; 96365; 96367; 96372; 96375; 99285; J0696; J0744; J1644; J3490; J7030; J7040